=== PATIENT | male | born 1965 | race Caucasian/White ===

== ENCOUNTER → 2018-02-18 | Emergency (ER) | payer BC ==
[~2018-02-18] VITALS: Ht 177.8 cm; Wt 88.5 kg
[~2018-02-18] MED LIST: METFORMIN HCL500 MG; SIMVASTATIN5 MG
== END | disposition home or self-care (01) ==
LOC: ER 18:55
DX: S50.02XA Contusion of left elbow, initial encounter (principal); W22.8XXA Striking against or struck by other objects, initial encounter; Y93.89 Activity, other specified; Y92.89 Other specified places as the place of occurrence of the external cause; Y99.8 Other external cause status